=== PATIENT | male | born 1970 | race Two or more races ===

== ENCOUNTER → 2017-01-16 | Outpatient (CLI) | payer SELFPAY | END | disposition home or self-care (01) | LOC: RAD 14:42 | DX: S09.8XXA Other specified injuries of head, initial encounter (principal); Y04.0XXA Assault by unarmed brawl or fight, initial encounter; S02.81XA Fracture of other specified skull and facial bones, right side, initial encounter for closed fracture; S02.40CA Maxillary fracture, right side, initial encounter for closed fracture; S52.041A Displaced fracture of coronoid process of right ulna, initial encounter for closed fracture; S02.40EA Zygomatic fracture, right side, initial encounter for closed fracture | CPT/HCPCS: 70486 ==

== ENCOUNTER → 2017-05-16 | Outpatient (CLI) | payer OTHER ==
--- NOTE | 2017-05-16 15:53 | MRI ---
STUDY: MRI OF THE ORBITS History: Right-sided visual disturbance. Technique: Sagittal T1, axial T1, T2 FLAIR, T2 FSE, and diffusion images the brain were performed. Ax ial and coronal T1 and T2 weighted images through the orbits were also performed. 17 cc of Omniscan was administered intravenously without reported complication following acquisition of informed written consent. Subsequently, axial whole brain T1, and high-resolution axial and silva l T1 weighted images with fat saturation were also performed. Comparison: None. Findings: MRI brain: The sulci is, cisterns, and ventricles are age appropriate. There are minimal confluent fo ci of T2 prolongation in the periventricular white matter. This is a nonspecific finding. There is no evidence of acute territorial infarction, hemorrhage, mass, mass effect or midline shift. There are no abnormal intra-axial or extra-axial fluid collections. Major intracranial vascular flow voids are intact. Incidental note is made of mucosal thickening in multiple ethmoid air cells. MRI orbits: High-resolution T1 and T2 weighted images through the level the orbits show no discrete m ass or signal abnormality. The extraocular muscles are symmetric. The intraconal orbital fat is nazario l in appearance without evidence of abnormal inflammatory stranding. No space occupying lesions are i dentified within either orbit. The optic nerves are normal in size, morphology and signal intensity. The globes are within normal limits. There is no evidence of optic nerve or optic chiasm compression. The orbital apices are within normal limits. The cavernous internal carotid artery flow voids are wi thin normal limits. Impression: 1. No evidence of acute intracranial abnormality. 2. Normal MRI examination of the orbits. Reported By:
== END ==
LOC: RAD 09:41
DX: H57.8 Other specified disorders of eye and adnexa (principal)
CPT/HCPCS: 70543